=== PATIENT | female | born 1970 | race Caucasian/White ===

== ENCOUNTER 2020-03-20 08:47 | Emergency (ER) | payer BC, SELFPAY ==
[2020-03-20 08:58] VITALS: BP 142/87; PULSE 73; RESP 20; TEMP 36.7; O2SAT 99
--- NOTE | 2020-03-20 09:09 | ED.SKABFB ---
HPI - Skin/Abscess/Foreign Bdy General Chief complaint: Skin/Abscess/Foreign Body Stated complaint: Under stomach boil Time Seen by Provider: 03/20/20 09:11 Source: patient and RN notes reviewed Mode of arrival: ambulatory Limitations: no limitations History of Present Illness HPI narrative: 49-year-old female who presents to express care with complaints of pimple type of lesion to the right lower side of her lower abdomen for some time which has increased in redness, size and firmness in the past few days with some bloody type of drainage noted lately from area. Patient has large pannus and states that she slipped [place] ladder on boat on the 10 of March hitting her lower abdomen and now has some bruising along her pannus and some swelling from injury. She states that over the weekend she walked about a mile and pants were rubbing on the lesion on her lower right abdomen which has also made the area increase in redness and become more painful. Patient denies any known fevers chills or sweats, has been using warm soaks to lesion area. Patient has 5cm X 4cm red swollen warm inflamed area noted to right lower abdomen with inner 1cm diameter indurated with some scabbing noted. MD complaint: abscess/boil (lower right abdomen) Onset (ago): week(s) (2) Tetanus up to date: yes Severity: moderate Severity scale (1-10): 5 Quality: aching Pain Consistency: colicky Relieving factors: other (warm soaks) Exacerbating factors: palpation Context: other (irritation to area) Associated symptoms: denies other symptoms Treatments prior to arrival: other (warm soaks and did push on center of wound) Related Data Home Medications Medication Instructions Recorded Confirmed levothyroxine [Euthyrox] 75 mcg PO DAILY 03/20/20 03/20/20 lisinopril 20 mg PO DAILY 03/20/20 03/20/20 omeprazole 40 mg PO DAILY 03/20/20 03/20/20 Allergies Allergy/AdvReac Type Severity Reaction Status Date / Time amoxicillin AdvReac Severe Other Verified 03/20/20 09:38 metronidazole [From Flagyl] AdvReac Intermediate Nausea and Verified 03/20/20 09:39 Vomiting Review of Systems Review of Systems: Narrative: CONSTITUTIONAL: Denies fever, chills, or sweats. EYES: Denies visual changes, redness, or discharge. ENT: Denies rhinorrhea, congestion, sore throat, or otalgia. CARDIOVASCULAR: Denies chest pain, palpitations, or edema. RESPIRATORY: Denies cough or dyspnea. GASTROINTESTINAL: Denies abdominal pain, nausea, vomiting, or diarrhea. GENITOURINARY: Denies dysuria or hematuria. SKIN: skin abscess to right lower abdomen red swollen and warm with indurated center, bruiing along pannus of abdomen from injury where she slipped on boat ladder and hit this area of her abdomen on 03/10/2020. MUSCULOSKELETAL: Denies back pain, joint pain, or myalgia. NEUROLOGIC: Denies headache, numbness, or weakness. PSYCHIATRIC: Denies anxiety or depression. All systems reviewed & are unremarkable except as noted in HPI and below PMFSH Past Medical History Medical History (Updated 03/21/20 @ 14:47 by Kendra Abbott NP) Fusion of spine, cervical region GERD (gastroesophageal reflux disease) Hypertension Hypothyroidism Surgical History Surgical History (Updated 03/20/20 @ 09:19 by Kendra Abbott NP) H/O arthroscopy of right knee Hx of cholecystectomy Social History Social History (Updated 03/21/20 @ 14:49 by Kendra Abbott NP) Smoking status: Former smoker Smoking end date: 11/17/08 Alcohol intake: unknown Substance use: never Living arrangements: with family Gender identity (if verbalized by the patient): Female Comments At time of signature, agree with nursing past medical, surgical, socia history. There is no relevant family history pertinent to the presenting complaint Exam Narrative: Exam Narrative: GENERAL: Well-appearing, well-nourished, and in no acute distress. HEAD: Normocephalic, atraumatic. EYES: PERRLA and EOMI. ENT: Nares clear, no rhinorrhea o
== END 2020-03-20 09:45 | disposition home or self-care (01) ==
PROVIDERS: Emergency Provider Registered Nurse
DX: L02.211 Cutaneous abscess of abdominal wall (principal); K21.9 Gastro-esophageal reflux disease without esophagitis; I10 Essential (primary) hypertension; E03.9 Hypothyroidism, unspecified; Z87.891 Personal history of nicotine dependence
CPT/HCPCS: 10160; 87070; 87075; 87076; 87205; 99203; G0463

== ENCOUNTER 2020-04-07 10:08 | Emergency (ER) | payer BC, SELFPAY ==
[2020-04-07 10:15] VITALS: BP 151/77; PULSE 79; RESP 16; TEMP 37.2; O2SAT 100
--- NOTE | 2020-04-07 10:43 | ED.SKABFB ---
HPI - Skin/Abscess/Foreign Bdy General Chief complaint: Skin/Abscess/Foreign Body Stated complaint: abcess on stomach Time Seen by Provider: 04/07/20 10:47 Source: patient and RN notes reviewed Mode of arrival: ambulatory Limitations: no limitations History of Present Illness HPI narrative: 49-year-old female who presents to [facility] with complaints of abscess to her lower mid abdomen which patient states that she noted on . Patient has large overlying lower abdominal panus and was treated on March 20 for abscess to her right lower abdomen which has healed. Patient now has abscess to mid lower abdomen panus area which has 2.5cmX2.5cm purplish colored tissue with no induration noted but with surrounding total area of [id number] area of erythema which is also warm and tender. Patient was treated previously with Clindamycin which did upset her stomach some, reinforced need to eat with medication and patient requested some Zofran to also take with medication. MD complaint: abscess/boil Onset (ago): day(s) (since ) Tetanus up to date: yes Location: genitals (lower abdomen) Severity: similar to previous episodes (different area) Treatments prior to arrival: none Related Data Home Medications Medication Instructions Recorded Confirmed levothyroxine [Euthyrox] 75 mcg PO DAILY 03/20/20 04/07/20 lisinopril 20 mg PO DAILY 03/20/20 04/07/20 omeprazole 40 mg PO DAILY 03/20/20 04/07/20 levonorgestrel [Mirena] 1 device INTRAUTERINE ONCE 04/07/20 04/07/20 Allergies Allergy/AdvReac Type Severity Reaction Status Date / Time amoxicillin AdvReac Severe Other Verified 04/07/20 10:51 metronidazole [From Flagyl] AdvReac Intermediate Nausea and Verified 04/07/20 10:51 Vomiting Review of Systems Review of Systems: Narrative: CONSTITUTIONAL: Denies fever, chills, or sweats. EYES: Denies visual changes, redness, or discharge. ENT: Denies rhinorrhea, congestion, sore throat, or otalgia. CARDIOVASCULAR: Denies chest pain, palpitations, or edema. RESPIRATORY: Denies cough or dyspnea. GASTROINTESTINAL: Denies abdominal pain, nausea, vomiting, or diarrhea. GENITOURINARY: Denies dysuria or hematuria. SKIN: positive for abscess to lower mid abdomen on panus with no drainage noted with large area of erythema surrounding inner purplish red region with no induration of tissue noted. MUSCULOSKELETAL: Denies back pain, joint pain, or myalgia. NEUROLOGIC: Denies headache, numbness, or weakness. PSYCHIATRIC: Denies anxiety or depression. All systems reviewed & are unremarkable except as noted in HPI and below PMFSH Past Medical History Medical History (Updated 04/08/20 @ 08:26 by Kendra Abbott NP) Fusion of spine, cervical region GERD (gastroesophageal reflux disease) Hypertension Hypothyroidism Surgical History Surgical History (Updated 03/20/20 @ 09:19 by Kendra Abbott NP) H/O arthroscopy of right knee Hx of cholecystectomy Social History Social History (Updated 03/21/20 @ 14:49 by Kendra Abbott NP) Smoking status: Former smoker Smoking end date: 11/17/08 Alcohol intake: unknown Substance use: never Gender identity (if verbalized by the patient): Female Comments At time of signature, agree with nursing past medical, surgical, social history. There is no relevant family history pertinent to the presenting complaint Exam Narrative: Exam Narrative: GENERAL: Well-appearing, well-nourished, and in no acute distress. HEAD: Normocephalic, atraumatic. EYES: PERRLA and EOMI. ENT: Nares clear, no rhinorrhea or epistaxis. Mucous membranes moist. NECK: Supple.no lymphadenopathy CHEST: Clear to auscultation. No respiratory distress. HEART: Regular rate and rhythm. No murmur heard. Normal peripheral pulses. ABDOMEN: Soft, tender area to mid lower abdominal panus with 2.5cm X2.5cm purplish red cent
== END 2020-04-07 11:07 | disposition home or self-care (01) ==
PROVIDERS: Emergency Provider Registered Nurse
DX: L02.211 Cutaneous abscess of abdominal wall (principal); I10 Essential (primary) hypertension; E03.9 Hypothyroidism, unspecified; K21.9 Gastro-esophageal reflux disease without esophagitis
CPT/HCPCS: 99213; G0463